=== PATIENT | female | born 1995 | race Two or more races ===

== ENCOUNTER 2022-07-19 23:41 | Emergency (ER) | payer BC ==
[~2022-07-19] VITALS: Ht 157.5 cm; Wt 71.0 kg
[2022-07-19 23:55] VITALS: BP 112/76
== END 2022-07-20 00:16 | disposition home or self-care (01) ==
LOC: EMS 23:41
DX: Z04.9 Encounter for examination and observation for unspecified reason (principal); Z88.0 Allergy status to penicillin; V98.8XXA Other specified transport accidents, initial encounter; Y93.89 Activity, other specified; Y92.89 Other specified places as the place of occurrence of the external cause; Y99.8 Other external cause status
CPT/HCPCS: 99283; Z7502